=== PATIENT | female | born 1930 | race African-American/Black ===

== ENCOUNTER 2017-03-06 04:40 | Emergency (ER) | payer MEDICARE, MEDICAID ==
--- NOTE | 2017-03-06 05:56 | RADIOLOGY REPORT (SQ) ---
EXAM DESCRIPTION: CT HEAD WITHOUT COMPLETED DATE/TIME: 03/06/2017 5:43 am REASON FOR STUDY: fall COMPARISON: None. TECHNIQUE: Axial images acquired through the brain without intravenous contrast. Images reviewed wi th bone, brain and subdural windows. Images stored on PACS. All CT scanners at this facility use dose modulation, iterative reconstruction, and/or weight based d osing when appropriate to reduce radiation dose to as low as reasonably achievable (ALARA). [facility]: Dose Right [facility]: CareDose [facility]: Dose Right [facility]: Teradose 4D [facility]: Airpush RADIATION DOSE: Up-to-date CT equipment and radiation dose reduction techniques were employed. CTDIv ol: 64.6 mGy. DLP: 1163 mGy-cm. mGy. LIMITATIONS: None. FINDINGS: VENTRICLES: Normal size and contour. CEREBRUM: No masses. No hemorrhage. No midline shift. No evidence for acute infarction. Normal gra y/white matter differentiation. No areas of low density in the white matter. CEREBELLUM: No masses. No hemorrhage. No alteration of density. No evidence for acute infarction. EXTRAAXIAL SPACES: No fluid collections. No masses. ORBITS AND GLOBE: No intra- or extraconal masses. Normal contour of globe without masses. CALVARIUM: No fracture. PARANASAL SINUSES: No fluid or mucosal thickening. SOFT TISSUES: Small frontal scalp swelling along the midline. OTHER: Abnormal CT of the cervical spine reported separately. IMPRESSION: No acute intracranial findings. Small scalp swelling. EVIDENCE OF ACUTE STROKE: NO. COMMENT: Quality ID # [id number]: Final reports with documentation of one or more dose reduction techniques (e.g., Automated exposure control, adjustment of the mA and/or kV according to patient size, use of iterative reconstruction technique) TECHNICAL DOCUMENTATION: JOB ID: [id number] [employer]- All Rights Reserved
--- NOTE | 2017-03-06 06:00 | RADIOLOGY REPORT (SQ) ---
EXAM DESCRIPTION: CT CERVICAL SPINE WITHOUT COMPLETED DATE/TIME: 03/06/2017 5:43 am REASON FOR STUDY: fall COMPARISON: None. TECHNIQUE: Axial images acquired through the cervical spine without intravenous contrast. Images re viewed with lung, soft tissue and bone windows. Reconstructed coronal and sagittal MPR images review ed. Images stored on PACS. All CT scanners at this facility use dose modulation, iterative reconstruction, and/or weight based d osing when appropriate to reduce radiation dose to as low as reasonably achievable (ALARA). [facility]: Dose Right [facility]: CareDose [facility]: Dose Right [facility]: Teradose 4D [facility]: Smart Minutizer RADIATION DOSE: Up-to-date CT equipment and radiation dose reduction techniques were employed. CTDIv ol: 22.3 mGy. DLP: 478 mGy-cm. mGy. LIMITATIONS: None. FINDINGS: ALIGNMENT: Anatomic. MINERALIZATION: Normal. VERTEBRAL BODIES: No fractures or dislocation. A 0.8 cm ossicular loose body at the superolateral as pect of the right alar ligament at the atlantoaxial joint suggests prior injury. DISCS: Small C3-C4 disc protrusion with mild spinal canal stenosis. FACETS, LATERAL MASSES, POSTERIOR ELEMENTS: No fractures. No dislocation. No acute findings. HARDWARE: None in the spine. VISUALIZED RIBS: No fractures. LUNG APICES AND SOFT TISSUES: No significant or acute findings. OTHER: Retained fluid of the right mastoid air cells. IMPRESSION: No acute findings. A 0.8 cm ossicular loose body at the superolateral aspect of the righ t alar ligament at the atlantoaxial joint suggests prior injury. TECHNICAL DOCUMENTATION: JOB ID: [id number] Quality ID # [id number]: Final reports with documentation of one or more dose reduction techniques (e.g., Au tomated exposure control, adjustment of the mA and/or kV according to patient size, use of iterative reconstruction technique) 2010 [employer]- All Rights Reserved
[2017-03-06 07:06] LABS: APPEARANCE,URINE CLEAR; BILIRUBIN,URINE NEGATIVE (NEGATIVE); GLUCOSE, URINE NEGATIVE (NEGATIVE); KETONES,URINE NEGATIVE (NEGATIVE); LEUKOCYTE ESTERASE,URINE NEGATIVE (NEGATIVE); NITRITE,URINE NEGATIVE (NEGATIVE); PROTEIN,URINE 30 mg/dL (NEGATIVE); URINE SPECIFIC GRAVITY 1.009; UROBILINOGEN,URINE NEGATIVE mg/dL (<2.0)
--- NOTE | 2017-03-06 07:11 | ER Document Report ---
ED Fall - General Mode of Arrival: Ambulatory Information source: Patient TRAVEL OUTSIDE OF THE [place] IN LAST 30 DAYS: No <JERROD MOREAU - Last Filed: 03/06/17 07:44> <SUSANNAH TRONCOSO - Last Filed: 03/06/17 10:09> - General Chief Complaint: Fall Stated Complaint: FALL,HEAD INJURY Time Seen by Provider: 03/06/17 06:42 Notes: Patient is an 87 year old female that presents to the emergency department today with complaints of a fall that occurred prior to arrival. Relative at bedside who lives with the patient states that she "heard a bump" and found the patient on the floor. Patient was found to have a BGL of 37 on EMS arrival today. Patient has dried blood on her forehead with a superficial abrasion. Relative states the patient has had similar symptoms in the past, once earlier this week. Relative states the patient didn't fall that time but EMS was called secondary to the patient having altered mental status and she was found to be hypoglycemic. (JERROD MOREAU) - Related data Allergies/Adverse Reactions: No Known Drug Allergies Allergy (Unknown, Verified 03/06/17 05:02) Home Medications: Current Home Medications Calcitriol 1 cap PO ASDIR PRN 03/06/17 [History] Cholecalciferol (Vitamin D3) [Vitamin D3] 1,000 unit PO DAILY 03/06/17 [History] Iron 64 mg PO DAILY 03/06/17 [History] Isosorbide Mononitrate [Isosorbide Mononitrate ER] 30 mg PO QAM 03/06/17 [ History] Lorazepam 0.5 mg PO Q4H PRN 03/06/17 [History] Nitroglycerin 0.4 mg SL ASDIR PRN 03/06/17 [History] Pramipexole Di-HCl [Pramipexole Dihydrochloride] 0.25 mg PO TID 03/06/17 [ History] Ranolazine [Ranexa] 500 mg PO BID 03/06/17 [History] Rosuvastatin Calcium 20 mg PO QPM 03/06/17 [History] Past Medical History - General Information source: Patient - Social History Smoking Status: Unknown if Ever Smoked Cigarette use (# per day): No Chew tobacco use (# tins/day): Yes Frequency of alcohol use: None Drug Abuse: None Lives with: Family Family History: Reviewed & Not Pertinent - Past Medical History Cardiac Medical History: Reports: Hx Coronary Artery Disease, Hx Hypertension Endocrine Medical History: Reports: Hx Diabetes Mellitus Type 2 GI Medical History: Reports: Hx Gastroesophageal Reflux Disease Musculoskeltal Medical History: Reports Hx Arthritis - KNEE, SHOULDERS Past Surgical History: Reports: Hx Cardiac Catheterization - Stent placement in 2009., Hx Hysterectomy - Immunizations Hx Diphtheria, Pertussis, Tetanus Vaccination: Yes Hx Pneumococcal Vaccination: 02/24/13 <JERROD MOREAU - Last Filed: 03/06/17 07:44> Review of Systems - Review of Systems -: Yes ROS unobtainable due to patient's medical condition - demented <JERROD MOREAU - Last Filed: 03/06/17 07:44> Physical Exam <JERROD MOREAU - Last Filed: 03/06/17 07:44> <SUSANNAH TRONCOSO - Last Filed: 03/06/17 10:09> - Vital signs Vitals: Temp Pulse Resp BP Pulse Ox 97.7 F 71 20 160/61 H 97 03/06/17 04:48 03/06/17 04:48 03/06/17 04:48 03/06/17 04:48 03/06/17 04:48 - Notes Notes: Physical Exam: General: age appropriate, at baseline according to family. HEENT: Normocephalic. Superficial abrasion to forehead, dried blood surrounding abrasion, no active bleeding. PERRL. Extraocular movements intact. Oropharynx clear. Neck: Supple. Non-tender. Respiratory: No respiratory distress. Clear and equal breath sounds bilaterally. Cardiovascular: Regular rate and rhythm. Abdominal: Normal Inspection. Non-tender. No distension. Normal Bowel Sounds. Back: Non-tender. No deformity or step off. Extremities: Moves all four extremities. Upper extremities: Normal inspection. Normal ROM. Lower extremities: Normal inspection. No edema. Normal ROM. Neurological: Demented. Normal speech. Psychological: Normal affect. Normal Mood. Skin: Warm. Dry. Normal color. (JERROD MOREAU) Course - Laboratory Result Diagrams: 03/06/17 06:50 03/06/17 06:50 <JERROD MOREAU - Last Filed: 03/06/17 07:44> - Laboratory Result Diagrams: 03/06/17 06:50 03/06/17 06:50 - EKG Interpretation by Me EKG shows normal: Sinus rhythm, [place], Intervals, QRS Complexes, ST-T Waves Rate: Normal - 66 Rhythm: NSR [place]/QRS: IVCD Voltage: Consistant with LVH <SUSANNAH TRONCOSO - Last Filed: 03/06/17 10:09> - Re-evaluation Re-evalutation: 03/06/17 09:49 The patient's most recent Accu-Chek is 161, so she will be discharged home to watch her sugars today. 03/06/17 10:08 I advised the family member that she needs to check her sugars throughout the day today. She should always check them at bedtime. The minor contusion laceration to the forehead does not need any treatment other than a Band-Aid when she gets home. She should follow-up with her primary care provider Wednesday to discuss the problem of the blood sugars dropping during the night. (SUSANNAH TRONCOSO) - Vital Signs Vital signs: Temp Pulse Resp BP Pulse Ox 97.7 F 71 17 148/70 H 93 03/06/17 04:48 03/06/17 04:48 03/06/17 08:01 03/06/17 08:01 03/06/17 08:01 - Laboratory Laboratory results interpreted by me: 03/06/17 03/06/17 03/06/17 04:47 05:01 05:19 RDW Plt Count BUN Creatinine Est GFR ( Amer) Est GFR (Non-Af Amer) Glucose POC Glucose 136 H 127 H AST Creatine Kinase Urine Protein 30 H Urine Ascorbic Acid 20 H 03/06/17 03/06/17 03/06/17 06:50 06:50 09:34 RDW 15.5 H Plt Count 131 L BUN 31 H Creatinine 1.90 H Est GFR ( Amer) 30 L Est GFR (Non-Af Amer) 25 L Glucose 166 H POC Glucose 161 H AST 40 H Creatine Kinase 336 H Urine Protein Urine Ascorbic Acid Discharge <JERROD MOREAU - Last Filed: 03/06/17 07:44> <SUSANNAH TRONCOSO - Last Filed: 03/06/17 10:09> - Discharge Clinical Impression: Hypoglycemia Contusion of forehead Qualifiers: Encounter type: initial encounter Qualified Code(s): S00.83XA - Contusion of other part of head, initial encounter Laceration of forehead Qualifiers: Encounter type: initial encounter Qualified Code(s): S01.81XA - Laceration without foreign body of other part of head, initial encounter Condition: Stable Disposition: HOME, SELF-CARE Additional Instructions: Hypoglycemia; You have suffered an episode of hypoglycemia (low blood sugar). Typical symptoms of hypoglycemia are shaking, sweating, headache, and confusion. When severe, unconsciousness or seizure may occur. Hypoglycemia occurs when a person taking insulin or diabetes pills has a change in the amount of blood sugar available -- due to exercise, decreased food intake, or alcohol. Should you feel symptoms of hypoglycemia again, immediately take some form of sugar such as sweetened juice. As the reaction subsides, eat a complex carbohydrate such as bread. If possible, check your blood sugar using a chemical strip. If episodes are occurring without obvious explanation, contact your physician for further evaluation. Be sure to check your blood sugars before you go to bed as you have had 2 episodes this week of blood sugar dropping during the night. Follow-up with your doctor Wednesday or Wednesday to discuss your episodes of hypoglycemia. RETURN TO THE EMERGENCY ROOM IF ANY NEW OR WORSENING SYMPTOMS. Referrals: DELORES MEDELLIN PA-C [Primary Care Provider] - Follow up as needed Scribe Attestation: 03/06/17 09:49 I personally performed the services described in the documentation, reviewed and edited the documentation which was dictated to the scribe in my presence, and it accurately records my words and actions. (SUSANNAH TRONCOSO) Scribe Documentation - Scribe Written by Griffin:: Griffin Go, 03/06/2017 0743 acting as scribe for :: Tanna <JERROD MOREAU - Last Filed: 03/06/17 07:44>
[2017-03-06 07:13] LABS: ABSOLUTE LYMPHOCYTES (AUTO) 1.4 10^3/uL (0.5-4.7); ABSOLUTE MONOCYTES (AUTO) 0.5 10^3/uL (0.1-1.4); ABSOLUTE NEUT (AUTO) 3.4 10^3/uL (1.7-8.2); BASOPHILS % (AUTO) 0.7 % (0-2); EOSINOPHILS % (AUTO) 0.5 % (0-6); HEMATOCRIT 39.5 % (36.0-47.0); HEMOGLOBIN 13.1 g/dL (12.0-15.5); HGB HCT DIFFERENCE -0.2; LYMPHOCYTES % (AUTO) 25.8 % (13-45); MEAN CORPUSCULAR HEMOGLOBIN 30.2 pg (27.0-33.4); MEAN CORPUSCULAR HGB CONC 33.2 g/dL (32.0-36.0); MEAN CORPUSCULAR VOLUME 91 fl (80-97); RED BLOOD COUNT 4.34 10^6/uL (3.72-5.28); RED CELL DISTRIBUTION WIDTH 15.5 % (11.5-14.0); WHITE BLOOD COUNT 5.5 10^3/uL (4.0-10.5)
[2017-03-06 07:29] LABS: ALANINE AMINOTRANSFERASE 37 U/L (9-52); ALKALINE PHOSPHATASE 122 U/L (38-126); ANION GAP 12 (5-19); ASPARTATE AMINO TRANSFERASE 40 U/L (14-36); BILIRUBIN,DIRECT 0.4 mg/dL (0.0-0.4); BILIRUBIN,TOTAL 0.5 mg/dL (0.2-1.3); BLOOD UREA NITROGEN 31 mg/dL (7-20); CARBON DIOXIDE 23 mmol/L (22-30); CHLORIDE 103 mmol/L (98-107); CREATINE KINASE 336 U/L (30-135); GLUCOSE 166 mg/dL (75-110); SODIUM 137.9 mmol/L (137-145)
--- NOTE | 2017-03-06 07:46 | EKG REPORT ---
SEVERITY:- ABNORMAL ECG - SINUS RHYTHM NONSPECIFIC INTRAVENTRICULAR CONDUCTION DELAY LVH WITH SECONDARY REPOLARIZATION ABNORMALITY : Confirmed by: Kemal Bazan MD 06-Mar-2017 07:45:18
[2017-03-06 10:41] VITALS: BP 150/69
== END 2017-03-06 10:39 | disposition home or self-care (01) ==
LOC: ER 04:40
DX: S01.81XA Laceration without foreign body of other part of head, initial encounter (principal); W19.XXXA Unspecified fall, initial encounter; Y92.009 Unspecified place in unspecified non-institutional (private) residence as the place of occurrence of the external cause; I45.9 Conduction disorder, unspecified; E11.649 Type 2 diabetes mellitus with hypoglycemia without coma; I25.10 Atherosclerotic heart disease of native coronary artery without angina pectoris; I10 Essential (primary) hypertension; F03.90 Unspecified dementia, unspecified severity, without behavioral disturbance, psychotic disturbance, mood disturbance, and anxiety; Z95.5 Presence of coronary angioplasty implant and graft
CPT/HCPCS: 36415; 70450; 72125; 80053; 81001; 82550; 82962; 84484; 85025; 93005; 93010; 99285

== ENCOUNTER → 2018-11-14 | Outpatient (CLI) | payer MEDICARE, MEDICAID ==
[2018-11-14 09:47] LABS: ABSOLUTE EOSINOPHILS # (AUTO) 0.2 10^3/uL (0.0-0.6); ABSOLUTE MONOCYTES (AUTO) 0.5 10^3/uL (0.1-1.4); ABSOLUTE NEUT (AUTO) 2.4 10^3/uL (1.7-8.2); BASOPHILS % (AUTO) 0.6 % (0-2); EOSINOPHILS % (AUTO) 3.1 % (0-6); HEMATOCRIT 35.6 % (36.0-47.0); HEMOGLOBIN 11.7 g/dL (12.0-15.5); MEAN CORPUSCULAR HEMOGLOBIN 30.5 pg (27.0-33.4); MEAN CORPUSCULAR VOLUME 92 fl (80-97); MONOCYTES % (AUTO) 10.3 % (3-13); PLATELET COUNT 133 10^3/uL (150-450); RED BLOOD COUNT 3.85 10^6/uL (3.72-5.28); RED CELL DISTRIBUTION WIDTH 14.6 % (11.5-14.0); TOTAL CELLS COUNTED % (AUTO) 100 %
[2018-11-14 10:14] LABS: ANION GAP 7 (5-19); BLOOD UREA NITROGEN 30 mg/dL (7-20); CALCIUM 9.7 mg/dL (8.4-10.2); CARBON DIOXIDE 25 mmol/L (22-30); CHLORIDE 109 mmol/L (98-107); GLUCOSE 82 mg/dL (75-110); POTASSIUM 4.2 mmol/L (3.6-5.0); SODIUM 141.1 mmol/L (137-145)
== END ==
LOC: OD 08:57
PROVIDERS: ATTEND Internal Medicine Nephrology
DX: I12.9 Hypertensive chronic kidney disease with stage 1 through stage 4 chronic kidney disease, or unspecified chronic kidney disease (principal); N18.4 Chronic kidney disease, stage 4 (severe); E11.22 Type 2 diabetes mellitus with diabetic chronic kidney disease; D63.1 Anemia in chronic kidney disease
CPT/HCPCS: 36415; 80048; 85025